=== PATIENT | male | born 1960 | race Caucasian/White ===

== ENCOUNTER 2018-08-24 20:58 | Outpatient (CLI) | payer OTHER | END 2018-08-24 20:59 | disposition home or self-care (01) | LOC: DI 20:58 | PROVIDERS: ATTEND Internal Medicine | DX: Z53.9 Procedure and treatment not carried out, unspecified reason (principal) ==

== ENCOUNTER 2018-08-26 07:18 | Outpatient (CLI) | payer OTHER ==
--- NOTE | 2018-08-28 15:27 | Ultrasound Report ---
Reason: RENAL ARTERY STENOSIS Procedure Date: 08/26/2018 Accession Number: [id number] / [id number] Procedure: US - Arterial Visceral Complete CPT Code: FULL RESULT: EXAM: RENAL ARTERY DOPPLER ULTRASOUND EXAM DATE: 08/26/2018 08:20 AM. CLINICAL HISTORY: Renal artery stenosis. Renal failure. COMPARISON: None. TECHNIQUE: Real-time sonographic vascular imaging was performed by the pneumatic tube fitter through the renal arterial system with a linear transducer utilizing color-flow, Doppler flow, and spectral analysis. Multiple pharmacy services representative static images were saved for review. FINDINGS: Right Kidney: 10 x 4.3 x 4.9 cm. *Inferior pole stone, 0.76 x 0.6 x 0.7 cm. Right Segmental Artery: Upper pole: PSV 42 cm/sec, RI 0.77. Mid pole: PSV 26 cm/sec, RI 0.53. Lower pole: PSV 22 cm/sec, RI 0.66. Right Renal Artery: Origin and proximal not well visualized. Origin: PSV 38 cm/sec, RA/AO 0.40. Proximal: PSV 55 cm/sec, RA/AO 0.59. Mid: PSV 156 cm/sec, RA/AO 1.67. Distal: PSV 46 cm/sec, RA/AO 0.49. Aorta PSV: 93 cm/sec. RRV Patent: Yes. Left Kidney: 13.6 x 5.6 x 5.7 cm. *Small lateral/superior exophytic cyst, 0.9 x 0.8 x 0.8 cm. Left Segmental Artery: Upper pole: PSV 54 cm/sec, RI 0.70. Mid pole: PSV 51 cm/sec, RI 0.68. Lower pole: PSV 36 cm/sec, RI 0.64. Left Renal Artery: Origin: PSV 249 cm/sec, RA/AO 2.67. Proximal: PSV 144 cm/sec, RA/AO 1.54. Mid: PSV 100 cm/sec, RA/AO 1.07. Distal: PSV 73 cm/sec, RA/AO 0.78. LRV Patent: Yes. IMPRESSION: 1. Imaged portions of the right renal artery show no significant stenosis. A nonobstructing right inferior pole 7 mm stone is present. 2. Based on peak systolic velocities and renal artery/aorta ratio, the diameter reduction in the left renal artery is less than 60%. There is a small superior 8 mm left cyst. CRITERIA FOR CLASSIFICATION OF RENAL ARTERY (RA) DISEASE BY DUPLEX SCANNING: RA Diameter Reduction/ RA PSV/ RAR: Normal, < 180 cm/sec, < 3.5 < 60%, >= 180 cm/sec, < 3.5 >= 60%, >= 180 cm/sec, >= 3.5 Total Occlusion: Undetectable; Not applicable RADIA
== END 2018-08-26 07:19 | disposition home or self-care (01) ==
LOC: DI 07:18
PROVIDERS: ATTEND Internal Medicine
DX: N17.9 Acute kidney failure, unspecified (principal); N18.2 Chronic kidney disease, stage 2 (mild); I70.1 Atherosclerosis of renal artery; N20.0 Calculus of kidney
CPT/HCPCS: 93975